=== PATIENT | female | born 1980 | race Two or more races ===

== ENCOUNTER 2021-11-10 17:34 | Emergency (ER) | payer OTHER ==
[~2021-11-10] VITALS: Ht 160 cm; Wt 90.7 kg
[2021-11-10 20:07] VITALS: BP 161/75
== END 2021-11-10 21:17 | disposition home or self-care (01) ==
LOC: ER 17:34
DX: S01.01XA Laceration without foreign body of scalp, initial encounter (principal); M62.838 Other muscle spasm; B36.9 Superficial mycosis, unspecified; H62.42 Otitis externa in other diseases classified elsewhere, left ear; E66.9 Obesity, unspecified; Z68.35 Body mass index [BMI] 35.0-35.9, adult; I10 Essential (primary) hypertension; E11.9 Type 2 diabetes mellitus without complications; W01.198A Fall on same level from slipping, tripping and stumbling with subsequent striking against other object, initial encounter; Y93.89 Activity, other specified; Y92.89 Other specified places as the place of occurrence of the external cause; Y99.8 Other external cause status
CPT/HCPCS: 70450; 72125

== ENCOUNTER 2025-02-19 22:55 | Emergency (ER) | payer MEDICAID, OTHER ==
[~2025-02-19] VITALS: Ht 160 cm; Wt 86.9 kg
--- NOTE | 2025-02-19 23:08 | ED.PDOC ---
SOB-HPI HPI Comments 44-year-old female presents with a chief complaint of shortness of breath x1 hour. The states that she attempted to use her inhaler at home but it did not relieve her symptoms. Patient states that she feels like she can not take a full breath. He is currently satting at 97% on room air and does not use supplemental oxygen. Patient denies any chest pain at this time. Time Seen by MD: 23:03 Reviewed notes: Medications, Allergies Information Source: Patient Mode of Arrival: Ambulatory Severity: Moderate Timing: Hours Duration: Since onset Context: At Rest PE Risk Factors: None History of: Asthma Prehospital treatment: Breathing Tx (Inhaler) Modifying Factors: Inhaler Associated Signs and Symptoms: None Past Medical History PAST MEDICAL HISTORY: Asthma, DM, HTN Surgical History: Denies all surgeries SEARCH ENGINE OPTIMIZATION MANAGER History: No Pertinent SEARCH ENGINE OPTIMIZATION MANAGER History Family History Family History: Reviewed,noncontributory to illness, No family hx of Cancer, No family hx of DM, No family hx of Heart selene, No family hx of HTN, No family hx ofKidney selene, No family hx of Liver selene, No family hx of Lung selene, No family hx of Stroke Social History Smoker: Non-Smoker Alcohol: Denies ETOH Use Drugs: Denies Drug Use Lives In: Home Constitutional: denies: chills, diaphoresis, fatigue, fever, malaise, sweats, weakness, others EENTM: denies: blurred vision, double vision, ear bleeding, ear discharge, ear drainage, ear pain, ear ringing, eye pain, eye redness, hearing loss, mouth pain, mouth swelling, nasal discharge, nose bleeding, nose congestion, nose pain, photophobia, tearing, throat pain, throat swelling, voice changes, others Respiratory: reports: SOB at rest, shortness of breath; denies: cough, hemoptysis, orthopnea, SOB with excertion, stridor, wheezing, others Cardiovascular: denies: chest pain, dizzy spells, diaphoresis, Dyspnea on exertion, edema, irregular heart beat, left arm pain, lightheadedness, palpitations, PND, syncope, others Gastrointestinal: denies: abdomen distended, abdominal pain, blood streaked bowels, constipated, diarrhea, dysphagia, difficulty swallowing, hematemesis, melena, nausea, poor appetite, poor fluid intake, rectal bleeding, rectal pain, vomiting, others Genitourinary: denies: abnormal vagina bleeding, burning, dyspareunia, dysuria, flank pain, frequency, hematuria, incontinence, pain, , vagina discharge, urgency, others Neurological: denies: dizziness, fainting, headache, left sided numbness, left sided weakness, numbness, paresthesia, pre-existing deficit, right sided numbness, right sided weakness, seizure, speech problems, tingling, tremors, weakness, others Musculoskeletal: denies: back pain, gout, joint pain, joint swelling, muscle pain, muscle stiffness, neck pain, others Integumetry: denies: bruises, change in color, change in hair/nails, dryness, laceration, lesions, lumps, rash, wounds, others Allergic/Immunocompromised: denies: Difficulty Healing, Frequent Infections, Hives, Itching, others Hematologic/Lymphatic: denies: anemia, blood clots, easy bleeding, easy bruising, swollen glands, others Endocrine: denies: excessive hunger, excessive sweating, excessive thirst, excessive urination, flushing, intolerance to cold, intolerance to heat, unexplained weight gain, unexplained weight loss, others Psychiatric: denies: anxiety, bipolar disorder, depression, hopeless, panic disorder, schizophrenia, sleepless, suicidal, others All Other Systems: Reviewed and Negative Physical Exam General Appearance: No Apparent Distress, Normal HEENT: Normal ENT Inspection, Pharynx Normal, TMs Normal Neck: Full Range of Motion, Non-Tender, Normal, Normal Inspection Respiratory: Chest Non-Tender, No Accessory Muscle Use, No Respiratory Distress, Wheezing (Very mild wheezing appreciated right middle lobe. No accessory muscle use. No signs of respiratory distress.) Cardiovascular: No Edema, No JVD, No Murmur, No Gallop, Normal Peripheral Pulses, Regular Rate/Rhythm Breast Exam: Deferred Gastrointestinal: No Organomegaly, Non Tender, No Pulsatile Mass, Normal Bowel Sounds, Soft Genitalia: Deferred Pelvic: Deferred Rectal: Deferred Extremities: No calf tenderness, Normal capillary refill, Normal inspection, Normal range of motion, Non-tender, No pedal edema Musculoskeletal : Apperance: Normal Neurologic: Alert, No Motor Deficits, Normal Affect, Normal Mood, No Sensory Deficits Cerebellar Function: Normal Reflexes: Normal Skin: Dry, Normal Color, Warm Lymphatic: No Adenopathy Was a procedure done? Was a procedure done?: No Differential Dx Differential Diagnosis: Asthma, Bronchitis, Pneumonia, URI X-Ray, Labs, Meds, VS Vital Signs Date Time Temp Pulse Resp B/P (MAP) Pulse Ox O2 Delivery O2 Flow Rate FiO2 02/19/25 23:19 34 97 Room Air 0 02/19/25 23:19 96.6 105 34 149/110 (123) 97 96.6 02/19/25 23:15 24 98 Room Air* 0 21 X-Ray, Labs, Meds, VS Comment All studies performed the ED were reviewed by me personally. Imaging studies were unremarkable for any acute pulmonary concerns. No consolidation or fibrotic concerns. I attempted to locate the patient to see how she responded to treatments, but nursing informed me that the patient appears to have eloped from the facility. Time of 1ST Reevaluation: 15:07 Reevaluation 1ST: Improved Consultation: PCP Patient Education/Counseling: Diagnosis, Treatment, Prognosis Family Education/Counseling: Diagnosis, Treatment, Prognosis Departure 1 Departure Time of Disposition: 15:07 Impression: Primary Impression: Acute asthma exacerbation Disposition: LEFT AWOL/ELOPED Condition: Stable Discharged With: Self Critical Care Note Critical Care Time?: No Stability Stability form required: No Heart Score Heart Score: Heart Score Response (Comments) Value History N/A 0 EKG N/A 0 Age N/A 0 Risk Factors N/A 0 Troponin N/A 0 Total 0 I personally scribed for DELONTE LACY PAC ([email or web address]) on 02/19/25 at 23:08. Elect ronically submitted by Sebastien Monreal ([email or web address]). I personally scribed for DELONTE LACY PAC ([email or web address]) on 02/19/25 at 23:11. Electr onically submitted by Sebastien Monreal ([email or web address]). DELONTE LACY PAC Feb 19, 2025 23:08
[2025-02-19] MEDS ORDERED: DexAMETHasone SOD PHOS 10MG/1ML VIAL INJ IM ONE (23:15)
[2025-02-19] MEDS: IPRATROPIUM BROM 0.5 MG/2.5ML INH SOL NEB ONE (23:17)
[2025-02-19] MEDS: ALBUTEROL SULF 2.5 MG/0.5ML(0.5%) NEB SOLN NEB ONE (23:17)
[2025-02-19] MEDS: IPRATROPIUM BROM 0.5 MG/2.5ML INH SOL ONE (23:18)
[2025-02-19] MEDS: ALBUTEROL SULF 2.5 MG/0.5ML(0.5%) NEB SOLN ONE (23:18)
[2025-02-19 23:19] VITALS: BP 149/110; PULSE 105; RESP 34; TEMP 96.6; O2SAT 97
--- NOTE | 2025-02-20 00:02 | DVH ---
CHEST RADIOGRAPH Indication: Shortness of breath Technique: Single frontal view of the chest was obtained Comparison: None FINDINGS: Lines and Tubes: None Lungs: Clear Pleura: No effusion. No pneumothorax. Cardiomediastinal contours: Unremarkable Bones: Unremarkable IMPRESSION: Clear lungs.
== END 2025-02-20 00:54 | disposition left against medical advice (07) ==
LOC: ER 22:55
DX: J45.901 Unspecified asthma with (acute) exacerbation (principal); I10 Essential (primary) hypertension; E11.9 Type 2 diabetes mellitus without complications
CPT/HCPCS: 71045; 94640

== ENCOUNTER 2025-07-03 07:13 | Emergency (ER) | payer MEDICAID ==
[~2025-07-03] VITALS: Ht 162.6 cm; Wt 88.0 kg
[2025-07-03 07:36] VITALS: BP 156/84; PULSE 81; RESP 18; TEMP 98.5; O2SAT 99
--- NOTE | 2025-07-03 08:48 | DVH ---
Indication: Pain Technique: XY R KNEE 3V XRAYXY Comparison: None FINDINGS/IMPRESSION: Subtle cortical lucency within the proximal fibular metadiaphysis/neck may represent a nondisplaced f racture. Correlate with point tenderness. Moderate to large suprapatellar effusion. [id number]-[id number] tricompartmental degenerative joint disease.
[2025-07-03] MEDS ORDERED: HYDR-4902 PO (09:26)
[2025-07-03] MEDS ORDERED: IBUP-1455 PO (09:26)
--- NOTE | 2025-07-03 09:27 | ED.PDOC ---
Musculoskeletal HPI Comments 44-year-old presents with the atraumatic right knee pain Approximately two years ago she experienced a sudden excruciating pain to the kneecap while at work without any precipitating injury or trauma. No diagnostic imaging or treatment was pursued at that time Recently the knee pain has reoccurred and significantly worsened over the past two days. No trauma no injury. The pain is described as an aching sensation primarily located on the inside of the knee and is exacerbated by extending the leg Patient has a attempted various ujmb-kyo-rtfmsod medications for the symptoms noted above including ibuprofen 600 mg and Tylenol arthritis Able to bear weight on the leg Denies trauma to the knee or recent fall Denies skin color changes around the knee Denies masses around the knee Denies popping/locking/giving out of the knee Denies fever chills night sweats nausea vomiting Denies previous surgeries to the knee nor significant injury Chief Complaint: Lower Extremity Time Seen by MD: 07:21 Reviewed Notes: Nurses Notes, Medications, Allergies Allergies: Coded Allergies: No Known Drug Allergy (Verified Allergy, Unknown, 11/10/21) Home Meds Active Scripts Ibuprofen Micronized (Ibuprofen) 800 Mg Tab, 800 MG PO Q8HPRN PRN for 10 Days, #30 TAB 0 Refills Prov:FERNANDA JEFFERSON NP 07/03/25 Hydrocodone-Acetaminophen (Hydrocodone Bitartrate/AC 5-325 mg) 1 Tab Tab, 1 TAB PO Q8HP PRN for 3 Days, #9 TAB 0 Refills Prov:FERNANDA JEFFERSON NP 07/03/25 Information Source: Patient Mode of Arrival: Ambulatory Past Medical History PAST MEDICAL HISTORY: Asthma, DM, HTN Surgical History: Denies all surgeries SALES PROMOTION DIRECTOR History: No Pertinent SALES PROMOTION DIRECTOR History Family History Family History: Reviewed,noncontributory to illness, No family hx of Cancer, No family hx of DM, No family hx of Heart selene, No family hx of HTN, No family hx ofKidney selene, No family hx of Liver selene, No family hx of Lung selene, No family hx of Stroke Social History Smoker: Non-Smoker Alcohol: Denies ETOH Use Drugs: Denies Drug Use Lives In: Home Physical Exam General Appearance: No Apparent Distress, Normal HEENT: Normal ENT Inspection, Pharynx Normal, TMs Normal Neck: Full Range of Motion, Non-Tender, Normal, Normal Inspection Respiratory: Chest Non-Tender, Lungs Clear, No Accessory Muscle Use, No Respiratory Distress, Normal Breath Sounds Cardiovascular: No Edema, No JVD, No Murmur, No Gallop, Regular Rate/Rhythm Breast Exam: Deferred Gastrointestinal: No Organomegaly, Non Tender, No Pulsatile Mass, Normal Bowel Sounds, Soft Genitalia: Deferred Pelvic: Deferred Rectal: Deferred Extremities: No calf tenderness, Normal capillary refill, Normal inspection, Normal range of motion, Non-tender, No pedal edema Musculoskeletal : Location: Right Extremity Location: Knee (No erythema no swelling. Pain with flexion- extension. No instability. 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 Was a procedure done?: No Differential Diagnosis EXT Differential Diagnosis: Sprain, Arthritis, Bursitis X-Ray, Labs, Meds, VS Vital Signs Date Time Temp Pulse Resp B/P (MAP) Pulse Ox O2 Delivery O2 Flow Rate FiO2 07/03/25 07:36 98.5 81 18 156/84 (108) 99 98.5 07/03/25 07:36 81 18 99 Room Air 07/03/25 07:14 98.5 81 18 172/96 99 98.5 Current Medications Medications (Trade) Dose Ordered Sig/Derek Route Start Time Stop Time Status Last Admin Ketorolac Tromethamine (Toradol Injection) 60 mg ONCE ONCE IM 07/03/25 09:30 07/03/25 09:31 DC 07/03/25 09:53 PATIENT: RUI UJSTINACCT: [id number]: [id number] : 1980 LOC: ER ROOM / BED: / AGE / SEX: 44 / F ADM STATUS: REG ER SERVICE [id number] ORDERING PHYSICIAN: FERNANDA JEFFERSON NP PROCEDURE(s): RKN3 - R KNEE 3V XRAY REASON: Pain ORDER NUMBER(s): [id number], ACCESSION NUMBER(s): [id number] Indication: Pain Technique: XY R KNEE 3V XRAYXY Comparison: None FINDINGS/IMPRESSION: Subtle cortical lucency within the proximal fibular metadiaphysis/neck may represent a nondisplaced fracture. Correlate with point tenderness. Moderate to large suprapatellar effusion. Qnte-uj-oinoimbe tricompartmental degenerative joint disease. ATED BY: ISRA AGOSTO MD DICTATED DATE/TIME: 07/03/25847 SIGNED BY: ISRA AGOSTO MD SIGNED DATE/TIME: 07/03/25847 CC: X-Ray, Labs, Meds, VS Comment Patient arrives alert and oriented, ABC's intact, afebrile, vital signs stable, saturating well in room air Patient presents with the atraumatic right knee pain that has been exacerbated in the last two days. No history of trauma no injury. Pain is localized to the anterior and medial aspect of the knee. Previously tried ibuprofen with minimal improvement. No history of surgeries to the affected leg Ordered x-rays Diagnostic imaging ordered by me and results interpreted by radiology : Subtle cortical lucency within the proximal fibular metadiaphysis/neck may represent a nondisplaced fracture. Correlate with point tenderness. Moderate to large suprapatellar effusion. Xbka-yx-adjwirqu tricompartmental degenerative joint disease. Patient is stable for discharge at this time. External notes reviewed. Test results and diagnostic imaging interpreted. All diagnostic findings, discharge care, education and instructions provided Follow-up with PCP in 2 to 3 days Patient will benefit from outpatient ortho consultation Patient verbalized understanding and agreed to treatment plan Vital signs stable, afebrile, no acute distress noted Patient ambulatory with strong steady gait Advised to return precautions for any new or worsening symptoms, return to ER immediately for re-evaluation Patient is aware that the purpose of this visit was for an acute medical emergency requiring emergent stabilization. Chronic conditions, including malignancies have not been ruled out. Patient is instructed to follow up with PCP as directed and discharge instructions for continued care and workup. If unable to arrange follow-up, patient is to return to the emergency department for reassessment. Patient (parent or legal guardian if applicable) was given verbal and written discharge instructions and acknowledges understanding. Additional MDM Review of External, Non-ED records: External records reviewed. Discussion with independent historian (EMS, family) history obtained from the patient/parents (if applicable) at bedside Chronic conditions affecting care: None Social determinants of health affecting care: None Consideration of admission (observation or admission): I considered escalation of care to admission for this patient, however given the reassuring workup, the patient is safe for outpatient management. Discussion with the Radiology: No Tests considered but not performed: Prescription medication considered but not given: Time of 1ST Reevaluation: :18 Reevaluation 1ST: Improved Patient Education/Counseling: Diagnosis, Treatment Family Education/Counseling: Diagnosis, Treatment Departure 1 Departure Time of Disposition: :18 Impression: Primary Impression: Tricompartment osteoarthritis of right knee Additional Impression: Suprapatellar effusion of knee Disposition: HOME / SELF CARE / HOMELESS Condition: Fair e-Prescriptions Ibuprofen Micronized (Ibuprofen) 800 Mg Tab 800 MG PO Q8HPRN PRN for 10 Days, #30 TAB 0 Refills Prov: FERNANDA JEFFERSON NP 07/03/25 Hydrocodone-Acetaminophen (Hydrocodone Bitartrate/AC 5-325 mg) 1 Tab Tab 1 TAB PO Q8HP PRN for 3 Days, #9 TAB 0 Refills Prov: FERNANDA JEFFERSON NP 07/03/25 Critical Care Note Critical Care Time?: No Stability Stability form required: No Heart Score Heart Score: Heart Score Response (Comments) Value History N/A 0 EKG N/A 0 Age N/A 0 Risk Factors N/A 0 Troponin N/A 0 Total 0 FERNANDA JEFFERSON NP Jul 03, 2025 09:27
[2025-07-03] MEDS: KETOROLAC TROMETH 60MG/2ML VIAL IM ONE (09:53)
== END 2025-07-03 10:01 | disposition home or self-care (01) ==
LOC: ER 07:13
DX: M17.11 Unilateral primary osteoarthritis, right knee (principal); M25.461 Effusion, right knee; J45.909 Unspecified asthma, uncomplicated; E11.9 Type 2 diabetes mellitus without complications; I10 Essential (primary) hypertension; Z79.899 Other long term (current) drug therapy
CPT/HCPCS: 73562; 96372; 99283; J1885

== ENCOUNTER 2025-07-05 20:06 | Emergency (ER) | payer MEDICAID ==
[~2025-07-05] VITALS: Ht 162.6 cm; Wt 90.3 kg
[~2025-07-05 20:06] MED LIST: HYDR-4902 PO; IBUP-1455 PO
[2025-07-05] MEDS ORDERED: ACE3T PO (21:47)
[2025-07-05] MEDS ORDERED: METH4PAK PO (21:47)
--- NOTE | 2025-07-05 21:48 | ED.PDOC ---
Musculoskeletal HPI Comments 44 year old female presents to ER with complaints of right knee pain x1 week. Patient with past medical history significant for chronic right knee pain x2 years reports she has been experiencing nontraumatic worsening right knee pain x1 week. Notes that she was seen and evaluated in ER here for her symptoms two days ago and had a x-ray of right knee done and was diagnosed with arthritis of right knee. States she presents back to ER today due to ongoing right knee pain, denying any worsening symptoms since last ER visit. States that she did follow up with her PCP today and is awaiting a call back tomorrow by her PCP office for information with regards to a follow up appointment with Orthopedics. Patient presents to ER ambulatory on arrival, in mild distress. Denies fever, body aches, chills, numbness/tingling, falls, calf pain or any further symptoms/complaints Chief Complaint: Lower Extremity Time Seen by MD: 20:12 Primary Care Provider: UNKNOWN Reviewed Notes: Nurses Notes, Medications, Allergies Allergies: Coded Allergies: No Known Drug Allergy (Verified Allergy, Unknown, 11/10/21) Home Meds Active Scripts Methylprednisolone (Medrol Dosepak) 4 Mg Masood, 4 MG PO UD, #21 TAB 0 Refills UAD Prov:GIL TURCIOS 07/05/25 Acetaminophen W/ Codeine (Tylenol W/Cod #3) 1 Tab Tb, 1 TAB PO Q6HPRN, #10 TAB 0 Refills Prov:GIL TURCIOS 07/05/25 Ibuprofen Micronized (Ibuprofen) 800 Mg Tab, 800 MG PO Q8HPRN PRN for 10 Days, #30 TAB 0 Refills Prov:FERNANDA JEFFERSON NP 07/03/25 Hydrocodone-Acetaminophen (Hydrocodone Bitartrate/AC 5-325 mg) 1 Tab Tab, 1 TAB PO Q8HP PRN for 3 Days, #9 TAB 0 Refills Prov:FERNANDA JEFFERSON NP 07/03/25 Information Source: Patient Mode of Arrival: Ambulatory Past Medical History PAST MEDICAL HISTORY: Asthma, DM, HTN Surgical History: Denies all surgeries BREAD SLICER MACHINE History: No Pertinent BREAD SLICER MACHINE History Family History Family History: Unknown Social History Smoker: Non-Smoker Alcohol: Denies ETOH Use Drugs: Denies Drug Use Lives In: Home Constitutional: denies: chills, diaphoresis, fatigue, fever, malaise, sweats, weakness, others EENTM: denies: blurred vision, double vision, ear bleeding, ear discharge, ear drainage, ear pain, ear ringing, eye pain, eye redness, hearing loss, mouth pain, mouth swelling, nasal discharge, nose bleeding, nose congestion, nose pain, photophobia, tearing, throat pain, throat swelling, voice changes, others Respiratory: denies: cough, hemoptysis, orthopnea, SOB at rest, shortness of breath, SOB with excertion, stridor, wheezing, others Cardiovascular: denies: chest pain, dizzy spells, diaphoresis, Dyspnea on e xertion, edema, irregular heart beat, left arm pain, lightheadedness, palpitations, PND, syncope, others Gastrointestinal: denies: abdomen distended, abdominal pain, blood streaked bowels, constipated, diarrhea, dysphagia, difficulty swallowing, hematemesis, melena, nausea, poor appetite, poor fluid intake, rectal bleeding, rectal pain, vomiting, others Genitourinary: denies: abnormal vagina bleeding, burning, dyspareunia, dysuria, flank pain, frequency, hematuria, incontinence, pain, , vagina discharge, urgency, others Neurological: denies: dizziness, fainting, headache, left sided numbness, left sided weakness, numbness, paresthesia, pre-existing deficit, right sided numbness, right sided weakness, seizure, speech problems, tingling, tremors, weakness, others Musculoskeletal: reports: others (As stated in HPI) Integumetry: denies: bruises, change in color, change in hair/nails, dryness, laceration, lesions, lumps, rash, wounds, others Allergic/Immunocompromised: denies: Difficulty Healing, Frequent Infections, Hives, Itching, others Hematologic/Lymphatic: denies: anemia, blood clots, easy bleeding, easy bruising, swollen glands, others Endocrine: denies: excessive hunger, excessive sweating, excessive thirst, excessive urination, flushing, intolerance to cold, intolerance to heat, unexplained weight gain, unexplained weight loss, others Psychiatric: denies: anxiety, bipolar disorder, depression, hopeless, panic disorder, schizophrenia, sleepless, suicidal, others Physical Exam General Appearance: Mild Distress HEENT: PERRL/EOMI Neck: Full Range of Motion, Non-Tender, Normal Respiratory: Chest Non-Tender, Lungs Clear, No Accessory Muscle Use, No Respiratory Distress, Normal Breath Sounds Cardiovascular: No Murmur, No Gallop, Regular Rate/Rhythm Breast Exam: Deferred Gastrointestinal: NOT DONE Genitalia: Deferred Pelvic: Deferred Rectal: Deferred Extremities: No calf tenderness, Normal capillary refill, Normal range of motion Musculoskeletal : Extremity Location: Knee (TTP/mild swelling noted to medial joint line of right knee. No other TTP to right knee noted. No further skin changes to right knee noted. Full range of motion to right knee appreciated. Pulses intact. 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 Was a procedure done?: No Sedation Sedation?: No Differential Diagnosis EXT Differential Diagnosis: Deep Vein Thrombosis, Fracture, Dislocation, Neurovascular injury X-Ray, Labs, Meds, VS Vital Signs Date Time Temp Pulse Resp B/P (MAP) Pulse Ox O2 Delivery O2 Flow Rate FiO2 07/05/25 21:47 79 18 99 Room Air 07/05/25 21:47 98.1 79 18 151/85 (107) 99 98.1 07/05/25 20:08 98.1 79 18 151/85 99 98.1 Current Medications Medications (Trade) Dose Ordered Sig/Derek Route Start Time Stop Time Status Last Admin Acetaminophen/ Hydrocodone Bitart ([place] 5/325MG Tab) 1 tab ONCE ONCE PO 07/05/25 21:45 07/05/25 21:46 DC 07/05/25 21:57 [place] 5/325 mg p.o. ordered Previous chart visit reviewed Right knee immobilizer applied Patient neurovascularly intact and reported improvement in symptoms prior to discharge Advised on elevation and alternate ice on/off as needed for pain Advised to follow up with PCP and orthopedics in 1-2 days Patient verbalized understanding and agreeable with current plan of care Advised to return to ER immediately if symptoms worsen Images Reviewed?: Images reviewed and evaluated by me Time of 1ST Reevaluation: 21:20 Reevaluation 1ST: N/A Patient Education/Counseling: Diagnosis, Treatment, Prognosis, Need For Follow Up Family Education/Counseling: No Family Present Departure 1 Departure Time of Disposition: 21:42 Impression: Primary Impression: Tricompartment osteoarthritis of right knee Additional Impression: Suprapatellar effusion of knee Disposition: 01 HOME / SELF CARE / HOMELESS Condition: Stable e-Prescriptions Methylprednisolone (Medrol Dosepak) 4 Mg Masood 4 MG PO UD, #21 TAB 0 Refills UAD Prov: GIL TURCIOS 07/05/25 Acetaminophen W/ Codeine (Tylenol W/Cod #3) 1 Tab Tb 1 TAB PO Q6HPRN, #10 TAB 0 Refills Prov: GIL TURCIOS 07/05/25 Discharged With: Friend Critical Care Note Critical Care Time?: No Stability Stability form required: No Heart Score Heart Score: Heart Score Response (Comments) Value History N/A 0 EKG N/A 0 Age N/A 0 Risk Factors N/A 0 Troponin N/A 0 Total 0 GIL TURCIOS Jul 05, 2025 21:48
[2025-07-05] MEDS: HYDROcodone-ACET 5/325MG TAB PO ONE (21:57)
[2025-07-05 23:15] VITALS: BP 132/84; PULSE 76; RESP 16; TEMP 97.7; O2SAT 98
== END 2025-07-05 23:32 | disposition home or self-care (01) ==
LOC: ER 20:06
DX: M17.11 Unilateral primary osteoarthritis, right knee (principal); M25.461 Effusion, right knee; J45.909 Unspecified asthma, uncomplicated; E11.9 Type 2 diabetes mellitus without complications; I10 Essential (primary) hypertension; Z79.899 Other long term (current) drug therapy
CPT/HCPCS: 29505

== ENCOUNTER 2025-07-19 15:35 | Emergency (ER) | payer MEDICAID ==
[~2025-07-19] VITALS: Ht 162.6 cm; Wt 89.6 kg
[~2025-07-19 15:35] MED LIST changes: +ACE3T PO; +METH4PAK PO
[2025-07-19 15:36] VITALS: TEMP 98.7
[2025-07-19 16:15] VITALS: BP 162/86; PULSE 81; RESP 18; O2SAT 99
--- NOTE | 2025-07-19 17:30 | DVH ---
INDICATION: KNEE PAIN COMPARISON: XY R KNEE 3V XRAY on DOS: 07/03/25 TECHNIQUE: CT of the right was performed without contrast. Volume transverse images were obtained and reconstructed in multiple planes using bone and soft tissue algorithms. CONTRAST: None Radiation Dose Information: CT Dose: CTDI volume is 24.99 mGy. Dose-length product is 825.78 mGy*cm FINDINGS: The alignment is normal. Small joint effusion There is no fracture, dislocation, or focal osseous lesions. 3 punctate radiopaque foreign bodies in the soft tissues anterior to the patella. There is a 5-6 mm c alcification in the soft tissues posterior to the lateral femoral condyle. Series 3 image 55 IMPRESSION: 1. No acute fracture or dislocation. Patella appears intact. 2. 3 small punctate foreign bodies in the anterior soft tissues patella. 3. Small joint effusion. 4. 5-6 mm calcification in the soft tissues posterior to the lateral femoral condyle. 5. All CT scans at this medical facility are performed using dose modulation techniques as appropriat e to a performed exam including the following: Automated exposure control was utilized; adjustment of the MA and/or KV according to patient size; and use of iterative reconstruction technique.
--- NOTE | 2025-07-19 17:50 | ED.PDOC ---
Musculoskeletal HPI Comments 45 year old presents for right leg pain. She was seen recently for knee pain Patient reports she followed up with the primary care doctor after being seen here approximately 7-10 days ago. Received a referral to orthopedics and has a upcoming appointment five days from today however patient was prompted into the emergency department for the leg pain Leg pain described as tightening sensation and localized throughout the calf and symptoms started today Denies no other associated signs and symptoms Denies chest pain shortness of breath Chief Complaint: Lower Extremity Time Seen by MD: 16:04 Primary Care Provider: UNKNOWN Reviewed Notes: Nurses Notes, Medications, Allergies Allergies: Coded Allergies: No Known Drug Allergy (Verified Allergy, Unknown, 11/10/21) Home Meds Active Scripts Methylprednisolone (Medrol Dosepak) 4 Mg Masood, 4 MG PO UD, #21 TAB 0 Refills [facility] Prov:GIL TURCIOS 07/05/25 Acetaminophen W/ Codeine (Tylenol W/Cod #3) 1 Tab Tb, 1 TAB PO Q6HPRN, #10 TAB 0 Refills Prov:GIL TURCIOS 07/05/25 Ibuprofen Micronized (Ibuprofen) 800 Mg Tab, 800 MG PO Q8HPRN PRN for 10 Days, #30 TAB 0 Refills Prov:FERNANDA JEFFERSON NP 07/03/25 Hydrocodone-Acetaminophen (Hydrocodone Bitartrate/AC 5-325 mg) 1 Tab Tab, 1 TAB PO Q8HP PRN for 3 Days, #9 TAB 0 Refills Prov:FERNANDA JEFFERSON NP 07/03/25 Information Source: Patient Mode of Arrival: Ambulatory Past Medical History PAST MEDICAL HISTORY: Asthma, DM, HTN Surgical History: Denies all surgeries BOX BLANK MACHINE FEEDER History: No Pertinent BOX BLANK MACHINE FEEDER History Family History Family History: Unknown Social History Smoker: Non-Smoker Alcohol: Denies ETOH Use Drugs: Denies Drug Use Lives In: Home All Other Systems: Reviewed and Negative (per hpi) Physical Exam General Appearance: No Apparent Distress, Normal HEENT: Normal ENT Inspection, Pharynx Normal, TMs Normal Neck: Full Range of Motion, Non-Tender, Normal, Normal Inspection Respiratory: Chest Non-Tender, Lungs Clear, No Accessory Muscle Use, No Respiratory Distress, Normal Breath Sounds Cardiovascular: No Edema, No JVD, No Murmur, No Gallop, Normal Peripheral Pulses, Regular Rate/Rhythm Breast Exam: Deferred Gastrointestinal: No Organomegaly, Non Tender, No Pulsatile Mass, Normal Bowel Sounds, Soft Genitalia: Deferred Pelvic: Deferred Rectal: Deferred Extremities: No calf tenderness, Normal capillary refill, Normal inspection, Normal range of motion, Non-tender, No pedal edema Musculoskeletal : Apperance: Normal Neurologic: Alert, gatekeeper II-XII nml as Tested, No Motor Deficits, Normal Affect, Normal Mood, No Sensory Deficits Cerebellar Function: Normal Reflexes: Normal Skin: Dry, Normal Color, Warm Lymphatic: No Adenopathy Was a procedure done? Was a procedure done?: No Differential Diagnosis EXT Differential Diagnosis: Deep Vein Thrombosis, Fracture, Sprain, Arthritis X-Ray, Labs, Meds, VS Vital Signs Date Time Temp Pulse Resp B/P (MAP) Pulse Ox O2 Delivery O2 Flow Rate FiO2 07/19/25 16:15 81 18 162/86 (111) 99 07/19/25 16:15 81 18 99 Room Air 07/19/25 15:36 98.7 69 16 157/95 97 98.7 PATIENT: RUI JUSTINACCT: [id number]: [id number] : 1980 LOC: ER ROOM / BED: / AGE / SEX: 45 / F ADM STATUS: REG ER SERVICE [id number] ORDERING PHYSICIAN: FERNANDA JEFFERSON NP PROCEDURE(s): RKNCT - CT R KNEE WO CONTRAST REASON: KNEE PAIN ORDER NUMBER(s): [id number], ACCESSION NUMBER(s): [id number] INDICATION: KNEE PAIN COMPARISON: XY R KNEE 3V XRAY on DOS: 07/03/25 TECHNIQUE: CT of the right was performed without contrast. Volume transverse i mages were obtained and reconstructed in multiple planes using bone and soft tissue algorithms. CONTRAST: None Radiation Dose Information: CT Dose: CTDI volume is 24.99 mGy. Dose-length product is 825.78 mGy*cm FINDINGS: The alignment is normal. Small joint effusion There is no fracture, dislocation, or focal osseous lesions. 3 punctate radiopaque foreign bodies in the soft tissues anterior to the patella. There is a 5-6 mm calcification in the soft tissues posterior to the lateral femoral condyle. Series 3 image 55 IMPRESSION: 1. No acute fracture or dislocation. Patella appears intact. 2. 3 small punctate foreign bodies in the anterior soft tissues patella. 3. Small joint effusion. 4. 5-6 mm calcification in the soft tissues posterior to the lateral femoral condyle. 5. All CT scans at this medical facility are performed using dose modulation techniques as appropriate to a performed exam including the following: Automated exposure control was utilized; adjustment of the MA and/or KV according to patient size; and use of iterative reconstruction technique. X-Ray, Labs, Meds, VS Comment Patient arrives alert and oriented, ABC's intact, afebrile, vital signs stable, saturating well in room air Diagnostic imaging ordered by me and results interpreted by radiology : CT IMPRESSION: 1. No acute fracture or dislocation. Patella appears intact. 2. 3 small punctate foreign bodies in the anterior soft tissues patella. 3. Small joint effusion. 4. 5-6 mm calcification in the soft tissues posterior to the lateral femoral condyle. Additional MDM Review of External, Non-ED records: External records reviewed. Discussion with independent historian (EMS, family) history obtained from the patient/parents (if applicable) at bedside Chronic conditions affecting care: None Social determinants of health affecting care: None Consideration of admission (observation or admission): I considered escalation of care to admission for this patient, however given the reassuring workup, the patient is safe for outpatient management. Discussion with the Radiology: No Tests considered but not performed: Prescription medication considered but not given: Time of 1ST Reevaluation: 17:49 Reevaluation 1ST: Improved Patient Education/Counseling: Diagnosis, Treatment Family Education/Counseling: Diagnosis, Treatment Departure 1 Departure Impression: Primary Impression: Knee pain Qualified Codes: M25.561 - Pain in right knee Additional Impression: Leg pain Qualified Codes: M79.604 - Pain in right leg Disposition: 01 HOME / SELF CARE / HOMELESS Condition: Stable Additional Instructions: Discharge Note: Drink plenty of fluids. Follow up with your primary Dr. Take your prescriptions as ordered. If your condition becomes worse call and follow up with your primary DrGeorge for instructions or return to the ER if needed. Thank you for visiting [facility]. Discharged With: Self Critical Care Note Critical Care Time?: No Stability Stability form required: No Heart Score Heart Score: Heart Score Response (Comments) Value History N/A 0 EKG N/A 0 Age N/A 0 Risk Factors N/A 0 Troponin N/A 0 Total 0 FERNANDA JEFFERSON [employer]AL[employer] INSPECTOR HEADING Jul 19, 2025 17:50
--- NOTE | 2025-07-19 18:14 | DVH ---
CLINICAL HISTORY: r/o dvt TECHNIQUE: Color and duplex doppler imagine of the right lower extremity veins was performed. Vessel compression if possible was also performed. COMPARISON: None FINDINGS: Right common femoral vein: Normal compressibility and flow. Right superficial femoral vein: Normal compressibility and flow. Right popliteal vein: Normal compressibility and flow. Proximal calf veins are normally compressible. IMPRESSION: NO SONOGRAPHIC EVIDENCE FOR DEEP VENOUS THROMBOSIS IN THE RIGHT LOWER EXTREMITY VEINS.
== END 2025-07-19 18:25 | disposition home or self-care (01) ==
LOC: ER 15:35
DX: M25.561 Pain in right knee (principal); J45.909 Unspecified asthma, uncomplicated; I10 Essential (primary) hypertension; E11.9 Type 2 diabetes mellitus without complications; Z79.899 Other long term (current) drug therapy
CPT/HCPCS: 73700; 93971